=== PATIENT | female | born 1975 | race Caucasian/White ===

== ENCOUNTER 2021-01-09 02:13 | Inpatient (IN) | payer BC ==
--- NOTE | 2021-01-09 03:44 | ED ---
Recheck HPI - General Chief Complaint: Recheck/Abnormal Lab/Rx Stated Complaint: Abd Pain Time Seen by Provider: 01/09/21 02:25 Source: patient, EMS, RN notes reviewed, old records reviewed Mode of arrival: EMS Limitations: no limitations - History of Present Illness Initial Comments: This is a 45-year-old female to the emergency department tonanne-marie. Patient presents today for evaluation regards to abdominal pain is accepted in transfer from outside facility for possibility of small bowel obstruction. In looking at paperwork patient may have some concern for superior mesenteric artery thrombosis with possible ileus type changes which they wanted to concern her correlate clinically for mesenteric ischemia. Patient's pain is currently well-controlled is resting comfortably MD Complaint: abnormal lab (Abnormal computed tomography scan findings for ileus,), other (Patient does have NG tube) -: hour(s) Returns Today for: persistent/worsening pain related to initial visit Symptoms Since Prior Visit: worsening pain Associated Symptoms: abdominal pain Treatments Prior to Arrival: Given Pain Meds on - Related Data Home Medications Medication Instructions Recorded Confirmed No Known Home Medications 01/09/21 01/09/21 Allergies Allergy/AdvReac Type Severity Reaction Status Date / Time No Known Allergies Allergy Verified 01/09/21 06:45 Review of Systems ROS Statement: Those systems with pertinent positive or pertinent negative responses have been documented in the HPI. ROS Other: All systems not noted in ROS Statement are negative. Past Medical History Past Medical History: No Reported History History of Any Multi-Drug Resistant Organisms: None Reported Past Surgical History: Section Past Psychological History: No Psychological Hx Reported Smoking Status: Never smoker Past Alcohol Use History: None Reported Past Drug Use History: None Reported General Exam Limitations: no limitations General appearance: alert, in no apparent distress Head exam: Present: atraumatic, normocephalic, normal inspection Eye exam: Present: normal appearance, PERRL, EOMI. Absent: scleral icterus, conjunctival injection, periorbital swelling ENT exam: Present: normal exam, mucous membranes moist Neck exam: Present: normal inspection. Absent: tenderness, meningismus, lymphadenopathy Respiratory exam: Present: normal lung sounds bilaterally. Absent: respiratory distress, wheezes, rales, rhonchi, stridor Cardiovascular Exam: Present: regular rate, normal rhythm, normal heart sounds. Absent: systolic murmur, diastolic murmur, rubs, gallop, clicks GI/Abdominal exam: Present: soft, tenderness (Epigastric right upper quadrant), normal bowel sounds. Absent: distended, guarding, rebound, rigid Extremities exam: Present: normal inspection, full ROM, normal capillary refill. Absent: tenderness, pedal edema, joint swelling, calf tenderness Back exam: Present: normal inspection Neurological exam: Present: alert, oriented X3, CN II-XII intact Psychiatric exam: Present: normal affect, normal mood Skin exam: Present: warm, dry, intact, normal color. Absent: rash Course Vital Signs 01/09/21 01/09/21 02:25 05:29 Temperature 98.3 F Pulse Rate 66 48 L Respiratory 18 16 Rate Blood Pressure 120/74 135/75 O2 Sat by Pulse 98 95 Oximetry - Reevaluation(s) Reevaluation #1: 01/09/21 07:06 Medical record is reviewed 01/09/21 07:07 Transferring paperwork is also been reviewed Reevaluation #2: 01/09/21 07:06 Patient is resting comfortable throughout ER - Consultations Consultation #1: Spoke with Dr. Yoder regarding patient, aware of patient for consultation Spoke with Dr. Moreau regarding patient's CT findings, is also able to consult on this patient, not initially concerned for significant mesenteric ischemia from suits. Medicine enteric artery atherosclerosis Medical Decision Making - Medical Decision Making 45 female DF for evaluation does have history of a no significant history of high blood pressure cholesterol diabetes smoking. 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
[2021-01-09] MEDS ORDERED: SODIUM CHLORIDE 0.9% 1,000 ML IV STA (07:01)
[2021-01-09] MEDS ORDERED: MORPHINE SULFATE 4 MG/ML SYRINGE IV STA (07:01)
[2021-01-09] MEDS ORDERED: ONDANSETRON 4 MG/2 ML VIAL IVP STA (07:01)
[2021-01-09] MEDS ORDERED: MORPHINE SULFATE 4 MG/ML SYRINGE IV PRN (07:02)
[2021-01-09] MEDS ORDERED: ONDANSETRON 4 MG/2 ML VIAL IVP PRN (07:02)
[2021-01-09] MEDS ORDERED: NALOXONE 0.4 MG/ML 1 ML VIAL IV PRN (07:02)
[2021-01-09] MEDS: SODIUM CHLORIDE 0.9% 1,000 ML IV SCH ×2 (07:32→23:48)
[2021-01-09] MEDS: PANTOPRAZOLE 40 MG/10 ML VIAL IV SCH (07:33)
[2021-01-09 09:08] LABS: Basophils % (A) 0 %; Eosinophils # (A) 0.1 k/uL (0-0.7); Eosinophils % (A) 1 %; HCT 39.8 % (34.0-46.0); HGB 13.7 gm/dL (11.4-16.0); Lymphocytes # (A) 1.5 k/uL (1.0-4.8); Lymphocytes % (A) 20 %; MCH 32.6 pg (25.0-35.0); MCHC 34.4 g/dL (31.0-37.0); MCV 94.9 fL (80.0-100.0); Mean Platelet Volume 7.8; Monocytes # (A) 0.4 k/uL (0-1.0); Monocytes % (A) 5 %; Neutrophils # (A) 5.6 k/uL (1.3-7.7); Neutrophils % (A) 73 %; Platelet Count 220 k/uL (150-450); RBC 4.19 m/uL (3.80-5.40); RDW 13.6 % (11.5-15.5); WBC 7.7 k/uL (3.8-10.6)
[2021-01-09 09:18] LABS: ALT 40 U/L (4-34); AST 20 U/L (14-36); African American GFR (CKD) >90 (>60 ml/min/1.73 sqM); Albumin 3.6 g/dL (3.5-5.0); Alkaline Phosphatase 42 U/L (38-126); Anion Gap 7 mmol/L; Blood Urea Nitrogen 15 mg/dL (7-17); Calcium 8.8 mg/dL (8.4-10.2); Carbon Dioxide 21 mmol/L (22-30); Chloride 105 mmol/L (98-107); Creatine Kinase 40 U/L (30-135); Glucose 90 mg/dL (74-99); Magnesium 1.6 mg/dL (1.6-2.3); Non-African American GFR(CKD) >90 (>60 ml/min/1.73 sqM); Phosphorus 3.4 mg/dL (2.5-4.5); Potassium 3.8 mmol/L (3.5-5.1); Sodium 133 mmol/L (137-145); Total Bilirubin 1.1 mg/dL (0.2-1.3); Total Protein 6.5 g/dL (6.3-8.2)
[2021-01-09 09:25] LABS: Partial Thromboplastin Time 23.5 sec (22.0-30.0); Prothrombin Time 10.3 sec (9.0-12.0)
--- NOTE | 2021-01-09 12:17 | P.GSCN ---
History of Present Illness Consult date: 01/09/21 Reason for Consult: possible mesenteric ischemia Requesting physician: Fabiana Maya History of present illness: This is a 45-year-old female who presented to [facility] in [place] with complaints of severe onset of abdominal pain that began yesterday morning. Patient had associated nausea but no vomiting. She states majority of the pain is in the upper right quadrant to epigastric region. Patient's thought initially it was just cath pain or constipation pain and she states she does not have regular bowel movements. States her last bowel movement was yesterday, and was formed however bowel movements are normally 2 per week. She does not take any medication and that she feels constipated. No significant past medical history other than hypertension, which she does not take medications for. She has no previous history of similar symptoms or previous history of bowel obstruction. She does have a history of section 4, D&C, and endometrial ablation. Shouldn't states she still having abdominal pain however it is improved with pain medication. 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 Moderate constipation trace amount of free fluid within the cul-de-sac. Patient states they placed an NG tube at the previous hospital and she had a large amount of output. There is currently no output at this time. He currently states no fever, chills, nausea, vomiting, abdominal pain improved with medication, no complaints of chest pain or shortness of breath. Review of Systems A 14 point review of systems was completed and all pertinent positives and negatives as stated in the HPI. Past Medical History Past Medical History: No Reported History History of Any Multi-Drug Resistant Organisms: None Reported Past Surgical History: Section Past Psychological History: No Psychological Hx Reported Smoking Status: Never smoker Past Alcohol Use History: None Reported Past Drug Use History: None Reported Medications and Allergies Home Medications Medication Instructions Recorded Confirmed Type No Known Home Medications 01/09/21 01/09/21 History Allergies Allergy/AdvReac Type Severity Reaction Status Date / Time No Known Allergies Allergy Verified 01/09/21 06:45 Surgical - Exam Vital Signs Temp Pulse Resp BP Pulse Ox 98.3 F 66 18 120/74 98 01/09/21 02:25 01/09/21 02:25 01/09/21 02:25 01/09/21 02:25 01/09/21 02:25 General appearance: The patient is alert, oriented, in no acute distress. HET: Head is normocephalic and atraumatic. Neck: Supple without lymphadenopathy. Trachea midline. Heart: S1 S2. Regular rate and rhythm. Lungs: Clear to auscultation. Abdomen: Soft, right upper quadrant tenderness, nondistended with decreased bowel sounds. Extremities: Normal skin color and turgor. No cyanosis, rash, ulceration, clubbing, or edema. Neurological: No focal deficits. Alert and oriented 3. Results - Labs 01/09/21 08:46 01/09/21 08:46 Assessment and Plan Assessment: 1. Abdominal pain 2. Questionable mesenteric ischemia per CT 3. Constipation Plan: 1. Please have CT abdomen and pelvis disc uploaded to our system 2. Keep nothing by mouth 3. Continue pain management 4. Antiemetics as needed 5. Further recommendations to follow Thank you for this consultation, and allowing us take part in the plan of care of your patient during her hospital stay. The impression and plan of care has been dictated as directed. Dr. Jamison I performed a history and examination of this patient, discussed the same with the dictator. I agree with the dictator's note ,documented as a scribe. Any additional findings or plans will be noted.
--- NOTE | 2021-01-09 14:12 | P.GSCN ---
History of Present Illness Consult date: 01/09/21 Reason for Consult: Abdominal pain, possible bowel obstruction History of present illness: The patient's a 45-year-old female who was in her usual state of health when she had sudden onset of abdominal pain about 10 AM. She never had anything like this in the past. Initially thought the patient felt this was some gas pain but it got quite a bit more severe than she usually experiences. Patient's had prior history of section. The pain was in the upper abdomen. Denies nausea or vomiting. Denies any flatus yesterday, this is not unusual for her. Denies fevers or chills. She did have a normal bowel movement that morning. The patient has some issues with chronic constipation and will typically only 2- 3 bowel movements a week. She had a normal one on Saturday and Saturday. She went into the ER and a CT was done showing possible ileus and possible mesenteric artery occlusion or stenosis. She feels better today. The d istention has improved. Nursing says the NG is not been to suction since her arrival. Review of Systems All systems: negative Past Medical History Past Medical History: No Reported History History of Any Multi-Drug Resistant Organisms: None Reported Past Surgical History: Section Past Psychological History: No Psychological Hx Reported Smoking Status: Never smoker Past Alcohol Use History: None Reported Past Drug Use History: None Reported Medications and Allergies Home Medications Medication Instructions Recorded Confirmed Type No Known Home Medications 01/09/21 01/09/21 History Allergies Allergy/AdvReac Type Severity Reaction Status Date / Time No Known Allergies Allergy Verified 01/09/21 06:45 Surgical - Exam Osteopathic Statement: *. No significant issues noted on an osteopathic structural exam other than those noted in the History and Physical/Consult. Vital Signs Temp Pulse Resp BP Pulse Ox 98.3 F 66 18 120/74 98 01/09/21 02:25 01/09/21 02:25 01/09/21 02:25 01/09/21 02:25 01/09/21 02:25 - General well developed, well nourished, no distress - Eyes normal ocular movement - Neck trachea midline - Respiratory normal expansion, clear to auscultation - Cardiovascular Rhythm: regular - Abdomen Abdomen: soft, tender (Walter minimal epigastric tenderness), no guarding, no rigid, distended (Some mild tympany to percussion) Results - Labs 01/09/21 08:46 01/09/21 08:46 Abnormal Lab Results - Last 24 Hours (Table) 01/09/21 Range/Units 08:46 Sodium 133 L (137-145) mmol/L Carbon Dioxide 21 L (22-30) mmol/L ALT 40 H (4-34) U/L Diabetes panel 01/09/21 Range/Units 08:46 Sodium 133 L (137-145) mmol/L Potassium 3.8 (3.5-5.1) mmol/L Chloride 105 (98-107) mmol/L Carbon Dioxide 21 L (22-30) mmol/L BUN 15 (7-17) mg/dL Creatinine 0.60 (0.52-1.04) mg/dL Glucose 90 (74-99) mg/dL Calcium 8.8 (8.4-10.2) mg/dL AST 20 (14-36) U/L ALT 40 H (4-34) U/L Alkaline Phosphatase 42 (38-126) U/L Total Protein 6.5 (6.3-8.2) g/dL Albumin 3.6 (3.5-5.0) g/dL Calcium panel 01/09/21 Range/Units 08:46 Calcium 8.8 (8.4-10.2) mg/dL Phosphorus 3.4 (2.5-4.5) mg/dL Albumin 3.6 (3.5-5.0) g/dL Pituitary panel 01/09/21 Range/Units 08:46 Sodium 133 L (137-145) mmol/L Potassium 3.8 (3.5-5.1) mmol/L Chloride 105 (98-107) mmol/L Carbon Dioxide 21 L (22-30) mmol/L BUN 15 (7-17) mg/dL Creatinine 0.60 (0.52-1.04) mg/dL Glucose 90 (74-99) mg/dL Calcium 8.8 (8.4-10.2) mg/dL Adrenal panel 01/09/21 Range/Units 08:46 Sodium 133 L (137-145) mmol/L Potassium 3.8 (3.5-5.1) mmol/L Chloride 105 (98-107) mmol/L Carbon Dioxide 21 L (22-30) mmol/L BUN 15 (7-17) mg/dL Creatinine 0.60 (0.52-1.04) mg/dL Glucose 90 (74-99) mg/dL Calcium 8.8 (8.4-10.2) mg/dL Total Bilirubin 1.1 (0.2-1.3) mg/dL AST 20 (14-36) U/L ALT 40 H (4-34) U/L Alkaline Phosphatase 42 (38-126) U/L Total Protein 6.5 (6.3-8.2) g/dL Albumin 3.6 (3.5-5.0) g/dL - Imaging CT scan - abdomen: report reviewed, image reviewed Assessment and Plan (1) Abdominal pain Current Visit: Yes Status: Acute Code(s): R10.9 - UNSPECIFIED ABDOMINAL PAIN SNOMED Code(s): 07214535 (2) Ileus Current Visit: Yes Status: Acute Code(s): K56.7 - ILEUS, UNSPECIFIED SNOMED Code(s): 901028936 Plan: The patient is being evaluated by vascular surgery. The patient would be a low risk for mesenteric artery stenosis she is a nonsmoker and there is no evidence of any atherosclerotic change in the aorta near the SMA. This is likely a mild ileus. She hasn't had anything significant out the NG tube so this will be clamped. If she is able to tolerate the tube being clamped without nausea, vomiting or pain, it may be discontinued later today. I'll follow with you.
[2021-01-09 15:10] LABS: Appearance,Urine Clear (Clear); Bilirubin,Urine Negative (Negative); Blood,Urine Negative (Negative); Color,Urine Yellow; Glucose,Urine (UA) Negative (Negative); Ketones,Urine 2+ (Negative); Leukocyte Esterase,Urine Negative (Negative); Nitrite,Urine Negative (Negative); Protein,Urine Trace (Negative); Urobilinogen,Urine <2.0 mg/dL (<2.0)
--- NOTE | 2021-01-09 17:19 | P.HPIM ---
History of Present Illness H&P Date: 01/09/21 Chief Complaint: Abdominal pain Ms. Reynolds is a 45-year-old female with no past medical history coming in with a chief complaint of abdominal pain. Patient is transferred from another hospital at [facility] for possibility of small bowel obstruction. Patient states that she started to have abdominal pain yesterday afternoon. Initially the pain was episodic in nature, it was coming and going but eventually worsened to the extent that she had to go to the emergency. 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 Moderate constipation trace amount of free fluid within the cul-de-sac. Patient states they placed an NG tube at the previous hospital and she had a large amount of output. Patient denied having any nausea or vomiting associated with the abdominal pain. She denied having any fevers chills or rigors. Patient states that she has history of constipation and has a bowel movement once in every 3 days. Her last bowel movement was yesterday morning. Patient denied having any dysuria or hematuria. She denied having any sick contacts. No recent travel. Patient states she almost lost 120 pounds since April 2019. She has been trying to do that with diet and exercise. In the ER here, at the time of admission patient's vitals temperature 98.3, heart rate 66, respiratory rate, blood pressure 120/70. Saturating at 98% on room air. On reviewing her last white count of 7.7, hemoglobin 13.7 and platelets 220. Sodium 133, potassium 3.8, chloride 105, bicarbonate 29, creatinine 15 and 0.6. Urine analysis was positive for trace protein, negative nitrites and leukocyte esterase. Review of Systems REVIEW OF SYSTEMS: CONSTITUTIONAL: No fever, chills or rigors HEENT: No recent visual problems or hearing problems. Denied any sore throat. CARDIOVASCULAR: No chest pain, orthopnea, PND, no palpitations, no syncope. PULMONARY: No shortness of breath, no cough, no hemoptysis. GASTROINTESTINAL: As per HPI NEUROLOGICAL: No headaches, no weakness, no numbness. HEMATOLOGICAL: Denies any bleeding or petechiae. GENITOURINARY: Denies any burning micturition, frequency, or urgency. MUSCULOSKELETAL/RHEUMATOLOGICAL: Denies any joint pain, swelling, or any muscle pain. ENDOCRINE: Denies any polyuria or polydipsia. The rest of the 14-point review of systems is negative. Past Medical History Past Medical History: No Reported History History of Any Multi-Drug Resistant Organisms: None Reported Past Surgical History: Section Past Psychological History: No Psychological Hx Reported Smoking Status: Never smoker Past Alcohol Use History: None Reported Past Drug Use History: None Reported - Past Family History Mother Family Medical History: No Reported History Medications and Allergies Home Medications Medication Instructions Recorded Confirmed Type No Known Home Medications 01/09/21 01/09/21 History Allergies Allergy/AdvReac Type Severity Reaction Status Date / Time No Known Allergies Allergy Verified 01/09/21 06:45 Physical Exam Vitals: Vital Signs Temp Pulse Pulse Resp BP BP Pulse Ox 01/09/21 13:04 99.1 F 61 16 105/60 98 01/09/21 07:42 67 18 128/87 96 01/09/21 05:29 48 L 16 135/75 95 01/09/21 02:25 98.3 F 66 18 120/74 98 Intake and Output 01/08/21 01/09/21 01/09/21 22:59 06:59 14:59 Other: Weight 55.792 kg PHYSICAL EXAMINATION: GENERAL: The patient is alert and oriented x3, not in any acute distress. Well developed, well nourished. HEENT: Pupils are round and equally reacting to light. EOMI. No scleral icterus. No conjunctival pallor. Normocephalic, atraumatic. No pharyngeal erythema. No thyromegaly. CARDIOVASCULAR: S1 and S2 present. No murmurs, rubs, or gallops. PULMONARY: Chest is clear to auscultation, no wheezing or crackles. ABDOMEN: Soft, nontender, nondistended, normoactive bowel sounds. No palpable organomegaly. MUSCULOSKELETAL: No joint swelling or deformity. EXTREMITIES: No cyanosis, clubbing, or pedal edema. NEUROLOGICAL: Gross neurological examination did not reveal any focal deficits. SKIN: No rashes. Results CBC & Chem 7: 01/09/21 08:46 01/09/21 08:46 Labs: Abnormal Lab Results - Last 24 Hours (Table) 01/09/21 Range/Units 08:46 Sodium 133 L (137-145) mmol/L Carbon Dioxide 21 L (22-30) mmol/L ALT 40 H (4-34) U/L Assessment and Plan Assessment: ASSESSMENT Abdominal pain ? Mesenteric ischemia per CT Constipation/ileus/small bowel obstruction PLAN: Patient is currently being managed with conservative measures. Surgery/vascular surgery on board. Less likely that the patient has mesenteric ischemia, as the patient's symptoms are improving significantly. We will continue with pain medications, antiemetics, NG tube to suction and IV hydrati on. Further recommendations depending on the progress of the patient.
[2021-01-10 06:23] LABS: Basophils % (A) 0 %; Eosinophils # (A) 0.2 k/uL (0-0.7); Eosinophils % (A) 3 %; HCT 45.5 % (34.0-46.0); HGB 14.9 gm/dL (11.4-16.0); Lymphocytes # (A) 1.7 k/uL (1.0-4.8); Lymphocytes % (A) 21 %; MCH 32.1 pg (25.0-35.0); MCHC 32.7 g/dL (31.0-37.0); MCV 98.2 fL (80.0-100.0); Mean Platelet Volume 7.9; Monocytes # (A) 0.5 k/uL (0-1.0); Monocytes % (A) 6 %; Neutrophils # (A) 5.7 k/uL (1.3-7.7); Neutrophils % (A) 69 %; Platelet Count 197 k/uL (150-450); RBC 4.64 m/uL (3.80-5.40); WBC 8.2 k/uL (3.8-10.6)
[2021-01-10 06:33] LABS: ALT 32 U/L (4-34); AST 19 U/L (14-36); African American GFR (CKD) >90 (>60 ml/min/1.73 sqM); Albumin 3.8 g/dL (3.5-5.0); Albumin/Globulin Ratio 1.2; Alkaline Phosphatase 51 U/L (38-126); Amylase 56 U/L (30-110); Anion Gap 9 mmol/L; Blood Urea Nitrogen 10 mg/dL (7-17); Calcium 9.2 mg/dL (8.4-10.2); Carbon Dioxide 24 mmol/L (22-30); Chloride 105 mmol/L (98-107); Globulin 3.1 g/dL; Glucose 71 mg/dL (74-99); LDH 501 U/L (313-618); Lipase 32 U/L (23-300); Magnesium 1.6 mg/dL (1.6-2.3); Non-African American GFR(CKD) >90 (>60 ml/min/1.73 sqM); Phosphorus 3.4 mg/dL (2.5-4.5); Sodium 138 mmol/L (137-145); Total Bilirubin 1.7 mg/dL (0.2-1.3); Total Protein 6.9 g/dL (6.3-8.2)
[2021-01-10] MEDS: PANTOPRAZOLE 40 MG/10 ML VIAL IV SCH (08:37)
[2021-01-10] MEDS: SODIUM CHLORIDE 0.9% 1,000 ML IV SCH ×2 (08:41→16:16)
--- NOTE | 2021-01-10 09:11 | P.PN ---
Subjective Progress Note Date: 01/10/21 The patient is seen on rounds. She feels better today. Denies pain. Has passed only a small amount of flatus. NG tube was removed yesterday Objective - Vital Signs Vital signs: Vital Signs Temp 98.1 F 01/10/21 05:23 Pulse 51 L 01/10/21 05:23 Resp 16 01/10/21 05:23 BP 131/68 01/10/21 05:23 Pulse Ox 100 01/10/21 07:46 Intake & Output 01/09/21 01/10/21 01/10/21 18:59 06:59 18:59 Intake Total 130 650 Balance 130 650 Weight 56.5 kg Intake: Intake, IV Titration 130 650 Amount Sodium Chloride 0.9% 1, 130 650 000 ml @ 130 mls/hr IV . Q7H42M [facility] Rx#:[id number] Other: Voiding Method Toilet # Voids 2 - Constitutional General appearance: Present: cooperative, no acute distress - Gastrointestinal General gastrointestinal: Present: normal bowel sounds, soft (slightly distended). Absent: tenderness - Labs CBC & Chem 7: 01/10/21 05:33 01/10/21 05:33 Labs: Abnormal Lab Results - Last 24 Hours (Table) 01/09/21 01/09/21 01/10/21 Range/Units 08:46 14:59 05:33 Sodium 133 L (137-145) mmol/L Carbon Dioxide 21 L (22-30) mmol/L Glucose 71 L (74-99) mg/dL Total Bilirubin 1.7 H (0.2-1.3) mg/dL ALT 40 H (4-34) U/L Ur Specific [place] 1.050 H (1.001-1.035) Urine Protein Trace H (Negative) Urine Ketones 2+ H (Negative) Assessment and Plan (1) Abdominal pain Current Visit: Yes Status: Acute Code(s): R10.9 - UNSPECIFIED ABDOMINAL PAIN SNOMED Code(s): 60615034 (2) Ileus Current Visit: Yes Status: Acute Code(s): K56.7 - ILEUS, UNSPECIFIED SNOMED Code(s): 927950783 Plan: Slowly advance her diet today to low fiber. Currently has a benign abdomen. This may be likely a ileus which will resolve without difficulty
--- NOTE | 2021-01-10 13:26 | P.PN ---
Subjective Progress Note Date: 01/10/21 Patient seen and examined sitting up at the bedside. NG tube has been discontinued and patient is tolerating her diet. States abdominal pain has improved significantly. She has been afebrile. Denies any nausea or vomiting. Objective - Vital Signs Vital signs: Vital Signs Temp 98.7 F 01/10/21 11:40 Pulse 55 L 01/10/21 11:40 Resp 16 01/10/21 11:40 BP 97/60 01/10/21 11:40 Pulse Ox 100 01/10/21 11:40 Intake & Output 01/09/21 01/10/21 01/10/21 18:59 06:59 18:59 Intake Total 130 650 Balance 130 650 Weight 56.5 kg Intake: Intake, IV Titration 130 650 Amount Sodium Chloride 0.9% 1, 130 650 000 ml @ 130 mls/hr IV . Q7H42M [facility] Rx#:[id number] Other: Voiding Method Toilet # Voids 2 - Exam General appearance: The patient is alert, oriented, appears in no acute distress. HET: Head is normocephalic and atraumatic. Conjunctiva pink. Sclera anicteric. Neck: Supple without lymphadenopathy. Abdomen: Soft, nontender, nondistended with bowel sounds. No guarding or rigidity. Extremities: Normal skin color and turgor. No pedal edema Skin: No rashes, no jaundice Neurological: No focal deficits. Alert and oriented 3. - Labs CBC & Chem 7: 01/10/21 05:33 01/10/21 05:33 Labs: Abnormal Lab Results - Last 24 Hours (Table) 01/09/21 01/10/21 Range/Units 14:59 05:33 Glucose 71 L (74-99) mg/dL Total Bilirubin 1.7 H (0.2-1.3) mg/dL Ur Specific [place] 1.050 H (1.001-1.035) Urine Protein Trace H (Negative) Urine Ketones 2+ H (Negative) Assessment and Plan Assessment: 1. Abdominal pain 2. Questionable mesenteric ischemia per CT 3. Constipation Plan: 1. CT abdomen and pelvis was reviewed by Dr. Jamison 2. Diet as tolerated 3. Continue medical management 4. There is no indication for any vascular surgical intervention, patient is cleared for discharge from vascular surgery was otherwise medically clear. The impression and plan of care has been dictated as directed. Dr. Murillo I performed a history and examination of this patient, discussed the same with the dictator. I agree with the dictator's note ,documented as a scribe. Any additional findings or plans will be noted.
--- NOTE | 2021-01-10 14:10 | P.PN ---
Subjective Ms. Reynolds is a 45-year-old female with no past medical history coming in with a chief complaint of abdominal pain. Patient is transferred from another hospital at [facility] for possibility of small bowel obstruction. Patient states that she started to have abdominal pain yesterday afternoon. Initially the pain was episodic in nature, it was coming and going but eventually worsened to the extent that she had to go to the emergency. 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 Moderate constipation trace amount of free fluid within the cul-de-sac. Patient states they placed an NG tube at the previous hospital and she had a large amount of output. Patient denied having any nausea or vomiting associated with the abdominal pain. She denied having any fevers chills or rigors. Patient states that she has history of constipation and has a bowel movement once in every 3 days. Her last bowel movement was yesterday morning. Patient denied having any dysuria or hematuria. She denied having any sick contacts. No recent travel. Patient states she almost lost 120 pounds since April 2019. She has been trying to do that with diet and exercise. In the ER here, at the time of admission patient's vitals temperature 98.3, heart rate 66, respiratory rate, blood pressure 120/70. Saturating at 98% on room air. On reviewing her last white count of 7.7, hemoglobin 13.7 and platelets 220. Sodium 133, potassium 3.8, chloride 105, bicarbonate 29, c reatinine 15 and 0.6. Urine analysis was positive for trace protein, negative nitrites and leukocyte esterase. Subjective: 01/10/2021 Patient today complains of no abdominal pain. Abdomen is not distended. She tolerated some broth with no abdominal pain. She is passing gas but no bowel movements Patient is hemodynamically stable. Labs are unremarkable including CBC, BMP and liver enzymes. Urine analysis is normal General surgery on the case vascular surgery on the case who cleared her for discharge today Objective - Vital Signs Vital signs: Vital Signs Temp 98.7 F 01/10/21 11:40 Pulse 55 L 01/10/21 11:40 Resp 16 01/10/21 11:40 BP 97/60 01/10/21 11:40 Pulse Ox 100 01/10/21 11:40 Intake & Output 01/09/21 01/10/21 01/10/21 18:59 06:59 18:59 Intake Total 130 650 Balance 130 650 Weight 56.5 kg Intake: Intake, IV Titration 130 650 Amount Sodium Chloride 0.9% 1, 130 650 000 ml @ 130 mls/hr IV . Q7H42M [facility] Rx#:[id number] Other: Voiding Method Toilet # Voids 2 - Exam GENERAL: The patient is alert and oriented x3, not in any acute distress. Well developed, well nourished. HEENT: Pupils are round and equally reacting to light. EOMI. No scleral icterus. No conjunctival pallor. Normocephalic, atraumatic. No pharyngeal erythema. No thyromegaly. CARDIOVASCULAR: S1 and S2 present. No murmurs, rubs, or gallops. PULMONARY: Chest is clear to auscultation, no wheezing or crackles. ABDOMEN: Soft, nontender, nondistended, normoactive bowel sounds. No palpable organomegaly. MUSCULOSKELETAL: No joint swelling or deformity. EXTREMITIES: No cyanosis, clubbing, or pedal edema. NEUROLOGICAL: Gross neurological examination did not reveal any focal deficits. SKIN: No rashes. no petechiae. 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 Patient is cleared by Vascular surgery for discharge Plan: This is a pleasant 45 years old female presents with abdominal ileus Advance diet as tolerated General surgery team on the case Vascular Surgery team cleared the patient for discharge Labs and medication were reviewed.. Continue same treatment. Continue with symptomatic treatment. Resume home medication. Monitor lytes and vitals. DVT and GI prophylaxis. Further recommendationsas per clinical course of the patient DVT prophylaxis: Subcutaneous heparin GI Prophylaxis: Ppi Possible discharge in 24-48 hours
[2021-01-11] MEDS: SODIUM CHLORIDE 0.9% 1,000 ML IV SCH ×2 (03:37→07:38)
[2021-01-11] MEDS: PANTOPRAZOLE 40 MG/10 ML VIAL IV SCH (07:38)
[2021-01-11 12:27] VITALS: BP 105/64; PULSE 52; RESP 17; TEMP 97.9
--- NOTE | 2021-01-11 22:45 | P.DS ---
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 Patient is cleared by Vascular surgery for discharge Sinus bradycardia, asymptomatic patient refused inpatient evaluation and wants to follow up as an outpatient Hospital course: Ms. Reynolds is a 45-year-old female with no past medical history coming in with a chief complaint of abdominal pain. Patient is transferred from another hospital at [facility] for possibility of small bowel obstruction. Patient states that she started to have abdominal pain when day earlier. 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 Moderate constipation trace amount of free fluid within the cul-de-sac. Patient states they placed an NG tube at the previous hospital and had a large amount of output. Eventually with treatment and bowel rest her abdominal pain completely resolved, she tolerated diet well and she had no bowel movement she was passing gases. Has been evaluated by Dr. Yoder surgeon who cleared her for discharge today. Today patient was lying in bed, completely asymptomatic and back to her normal self as she states and she was so eager to go home today. Vascular surgery evaluated the patient for possible stenosis of the superior mesenteric arteries however as she has been asymptomatic they cleared her for discharge and follow-up as an outpatient Vitals was showing bradycardia at 46, EKG confirmed sinus bradycardia at [address]-T changes. I talked with cardiology team and sent they can see her but is going to be tomorrow, at this point the patient and her significant other at bedside were so adamant to leave today stating that she has an family event tomorrow, also she told me she has this bradycardia for about several months may be 18 months and she has been already evaluated by her primary doctor with Holter monitor, however she admits has not been seen by stock holder however she is willing to follow up with stock holder as an outpatient within 1 week as instructed. Patient was adamant to be discharged today and follow-up outpatient. She denies chest pain or dyspnea. No coughing. No abdominal pain. No change in urine or bowel habits. No fever. Patient was cleared for discharge by general and vascular surgery Problems and management plan were discussed with the patient and he verbalized understanding and acceptance Patient was found stable and can be discharged home however he needs follow-up as an outpatient. Patient was instructed to follow up with PCP Dr. Johnson within one week and patient agrees Patient was instructed to follow up with Dr. Yoder in one week and Dr. Jun lópez in 1-2 weeks and she agrees to call or make appointments by staff Also staff called cardiac geology associated to make appointment and informed office will call the patient for appointment within a week and informed and she agrees Physical exam Gen: patient is a AAOx3, no distress CVS: S1-S2, RRR, no murmur Lungs: B/L CTA, no wheezing Abdomen: soft, no distention, no tenderness, positive bowel sounds Extremity: no leg edema or induration Time spent more than 35 minutes Patient Condition at Discharge: Fair Plan - Discharge Summary Discharge Rx Participant: No New Discharge Prescriptions: No Action No Known Home Medications Discharge Medication List No Known Home Medications 01/09/21 [History] Follow up Appointment(s)/Referral(s): Joselyn Braga MD [STAFF PHYSICIAN] - 1 Week (office will call patient with date and time of appt.) Zoila Yoder DO [Doctor of Osteopathic Medicine] - 01/19/21 9:15 am () Sulaiman Murillo DO [STAFF PHYSICIAN] - 01/17/21 2:30 pm (vascular surgeon) Alex Riggs DO [Primary Care Provider] - 01/18/21 8:45 am () Patient Instructions/Handouts: Acute Abdominal Pain (DC), Bradycardia (DC), Bowel Obstruction (DC), Ileus (DC) Discharge Disposition: HOME SELF-CARE
== END 2021-01-11 14:50 | disposition home or self-care (01) | DRG 389 ==
LOC: EC 02:13 → 5NMEDONC 07:04
PROVIDERS: ADMIT Hospitalist; ATTEND Hospitalist
DX: K56.7 Ileus, unspecified (principal); K55.9 Vascular disorder of intestine, unspecified; K56.609 Unspecified intestinal obstruction, unspecified as to partial versus complete obstruction; I10 Essential (primary) hypertension; R00.1 Bradycardia, unspecified; K59.00 Constipation, unspecified; Z98.891 History of uterine scar from previous surgery
CPT/HCPCS: 80053; 81003; 82150; 82550; 83605; 83615; 83690; 83735; 83880; 84100; 84443; 84484; 85025; 85610; 85730; 93005; 99285

== ENCOUNTER 2021-01-14 08:35 | Emergency (ER) | payer BC ==
[2021-01-14 08:49] VITALS: TEMP 98.6
[2021-01-14] MEDS ORDERED: ONDANSETRON 4 MG/2 ML VIAL IVP STA (09:04)
[2021-01-14] MEDS ORDERED: SODIUM CHLORIDE 0.9% 1,000 ML IV STA (09:04)
[2021-01-14] MEDS ORDERED: MORPHINE SULFATE 4 MG/ML SYRINGE IV STA (09:04)
[2021-01-14] MEDS ORDERED: PANTOPRAZOLE 40 MG/10 ML VIAL IVP STA (09:19)
--- NOTE | 2021-01-14 09:47 | ED ---
Abdominal Pain HPI - General Chief Complaint: Abdominal Pain Stated Complaint: abd pain Time Seen by Provider: 01/14/21 08:54 Source: patient, RN notes reviewed Mode of arrival: ambulatory Limitations: no limitations - History of Present Illness Initial Comments: Patient is a 45-year-old female that presents emergency department complaining of abdominal pain. She notes she was recently discharged from the hospital for small bowel structure. She notes that she had an NG tube placed which decompressed her stomach and she started feeling much better. She notes that she thinks the acid that sitting in her stomach might of cost an ulcer. She notes that she's had bowel movements over the last 1-2 days. She did not appear to be in any distress or pain while sitting up in bed during the exam interview.CT of the abdomen and pelvis showed suspicion for moderate stenosis occlusion of proximal superior mesenteric artery was small bowel dilation sug gestive either small bowel ileus changes with underlying ischemic change cannot be excluded according clinically. Patient was cleared by vascular surgery. Today she denied any chest pain shortness of breath headache vomiting diarrhea constipation fever fatigue chills. - Related Data Previous Rx's Medication Instructions Recorded Ondansetron Odt [Zofran Odt] 4 mg PO Q8HR PRN #10 tab 01/14/21 Allergies Allergy/AdvReac Type Severity Reaction Status Date / Time No Known Allergies Allergy Verified 01/14/21 08:49 Review of Systems ROS Statement: Those systems with pertinent positive or pertinent negative responses have been documented in the HPI. ROS Other: All systems not noted in ROS Statement are negative. Past Medical History Past Medical History: No Reported History Additional Past Medical History / Comment(s): bowel obstruction History of Any Multi-Drug Resistant Organisms: None Reported Past Surgical History: Section Past Psychological History: No Psychological Hx Reported Smoking Status: Never smoker Past Alcohol Use History: None Reported Past Drug Use History: None Reported - Past Family History Mother Family Medical History: No Reported History General Exam Limitations: no limitations General appearance: alert, in no apparent distress Head exam: Present: atraumatic, normocephalic, normal inspection Eye exam: Present: normal appearance, PERRL, EOMI. Absent: scleral icterus, conjunctival injection, periorbital swelling ENT exam: Present: normal exam, mucous membranes moist Neck exam: Present: normal inspection Respiratory exam: Present: normal lung sounds bilaterally. Absent: respiratory distress, wheezes, rales, rhonchi, stridor Cardiovascular Exam: Present: regular rate, normal rhythm, normal heart sounds. Absent: systolic murmur, diastolic murmur, rubs, gallop, clicks GI/Abdominal exam: Present: soft, tenderness (Generalized in all quadrants), normal bowel sounds. Absent: distended, guarding, rebound, rigid Extremities exam: Present: normal inspection, full ROM, normal capillary refill. Absent: tenderness, pedal edema, joint swelling, calf tenderness Neurological exam: Present: alert, oriented X3 Psychiatric exam: Present: normal affect, normal mood Skin exam: Present: warm, dry, intact, normal color. Absent: rash Course Vital Signs 01/14/21 01/14/21 01/14/21 08:47 09:49 10:00 Temperature 98.6 F Pulse Rate 82 Respiratory 16 18 18 Rate Blood Pressure 113/76 O2 Sat by Pulse 97 Oximetry 01/14/21 01/14/21 11:00 12:00 Temperature Pulse Rate 57 L Respiratory 18 18 Rate Blood Pressure 104/67 O2 Sat by Pulse Oximetry Medical Decision Making - Medical Decision Making 45-year-old female complaining of abdominal pain, recent discharge from the possible for a small bowel ileus. Labs, 1 L normal saline, 4 g morphine, 4 mg Zofran, 40 mg of pantoprazole, KUB ordered. X-ray shows favorites persistent distal small bowel obstruction. Labs unremarkable. Patient is tolerating oral fluid intake in the emergency room stating that she feels much better at this time. Case discussed with Dr. Land, patient discharge home with close follow-up to primary care and GI specialist. - Lab Data Result diagrams: 01/14/21 09:52 01/14/21 10:52 Lab Results 01/14/21 01/14/21 01/14/21 Range/Units 09:52 09:52 10:52 WBC 9.9 (3.8-10.6) k/uL RBC 4.81 (3.80-5.40) m/uL Hgb 15.9 (11.4-16.0) gm/dL Hct 46.0 (34.0-46.0) % MCV 95.7 (80.0-100.0) fL MCH 33.0 (25.0-35.0) pg MCHC 34.5 (31.0-37.0) g/dL RDW 12.9 (11.5-15.5) % Plt Count 247 (150-450) k/uL MPV 8.7 Neutrophils % 85 % Lymphocytes % 11 % Monocytes % 3 % Eosinophils % 1 % Basophils % 0 % Neutrophils # 8.4 H (1.3-7.7) k/uL Lymphocytes # 1.0 (1.0-4.8) k/uL Monocytes # 0.3 (0-1.0) k/uL Eosinophils # 0.1 (0-0.7) k/uL Basophils # 0.0 (0-0.2) k/uL Sodium 139 (137-145) mmol/L Potassium 4.2 (3.5-5.1) mmol/L Chloride 104 (98-107) mmol/L Carbon Dioxide 25 (22-30) mmol/L Anion Gap 10 mmol/L BUN 14 (7-17) mg/dL Creatinine 0.66 (0.52-1.04) mg/dL Est GFR (CKD-EPI)AfAm >90 (>60 ml/min/1.73 sqM) Est GFR (CKD-EPI)NonAf >90 (>60 ml/min/1.73 sqM) Glucose 82 (74-99) mg/dL Plasma Lactic Acid [place] 1.0 (0.7-2.0) mmol/L Calcium 9.2 (8.4-10.2) mg/dL Total Bilirubin 1.0 (0.2-1.3) mg/dL AST 20 (14-36) U/L ALT 28 (4-34) U/L Alkaline Phosphatase 44 (38-126) U/L Total Protein 6.5 (6.3-8.2) g/dL Albumin 3.8 (3.5-5.0) g/dL Amylase 53 (30-110) U/L Lipase 39 (23-300) U/L - Radiology Data Radiology results: report reviewed, image reviewed KUB: Findings consistent with persistent distal small bowel obstruction. Disposition Clinical Impression: Abdominal pain, Ileus Disposition: HOME SELF-CARE Condition: Stable Instructions (If sedation given, give patient instructions): Abdominal Pain (ED) Additional Instructions: Please return to the Emergency Department if symptoms worsen or any other concerns. Follow-up with primary care 1-2 days. Follow-up with GI specialist as soon as possible. Continue to increase oral fluids. Is patient prescribed a controlled substance at d/c from ED?: No Referrals: Alex Riggs DO [Primary Care Provider] - 1-2 days Myriam Mckinney MD [STAFF PHYSICIAN] - 1-2 days Time of Disposition: 12:58
[2021-01-14 09:54] VITALS: RESP 18
[2021-01-14 10:01] LABS: Basophils % (A) 0 %; Eosinophils # (A) 0.1 k/uL (0-0.7); Eosinophils % (A) 1 %; HGB 15.9 gm/dL (11.4-16.0); Lymphocytes % (A) 11 %; MCHC 34.5 g/dL (31.0-37.0); MCV 95.7 fL (80.0-100.0); Mean Platelet Volume 8.7; Monocytes # (A) 0.3 k/uL (0-1.0); Monocytes % (A) 3 %; Neutrophils # (A) 8.4 k/uL (1.3-7.7); Neutrophils % (A) 85 %; Platelet Count 247 k/uL (150-450); RBC 4.81 m/uL (3.80-5.40); RDW 12.9 % (11.5-15.5); WBC 9.9 k/uL (3.8-10.6)
--- NOTE | 2021-01-14 10:40 | XR ---
EXAMINATION TYPE: XR KUB DATE OF EXAM: 01/14/2021 10:29 AM CLINICAL HISTORY: Abdominal pain TECHNIQUE: Two Upright KUB images of the abdomen are obtained. COMPARISON: Outside CT January 08, 2021. FINDINGS: Some paucity of bowel gas. Persistent slightly prominent small bowel loops right mid abdome n with air-fluid levels. Gas seen in nondistended bowel loops along the periphery. No free air. Lung bases are clear. Osseous structures are intact IMPRESSION: Findings consistent with persistent distal small bowel obstruction.
[2021-01-14 11:26] LABS: ALT 28 U/L (4-34); AST 20 U/L (14-36); African American GFR (CKD) >90 (>60 ml/min/1.73 sqM); Albumin 3.8 g/dL (3.5-5.0); Alkaline Phosphatase 44 U/L (38-126); Amylase 53 U/L (30-110); Anion Gap 10 mmol/L; Blood Urea Nitrogen 14 mg/dL (7-17); Calcium 9.2 mg/dL (8.4-10.2); Carbon Dioxide 25 mmol/L (22-30); Chloride 104 mmol/L (98-107); Glucose 82 mg/dL (74-99); Lipase 39 U/L (23-300); Non-African American GFR(CKD) >90 (>60 ml/min/1.73 sqM); Potassium 4.2 mmol/L (3.5-5.1); Sodium 139 mmol/L (137-145); Total Protein 6.5 g/dL (6.3-8.2)
[2021-01-14 12:33] VITALS: BP 104/67; PULSE 57
== END 2021-01-14 13:09 | disposition home or self-care (01) ==
LOC: EC 08:35
DX: K56.7 Ileus, unspecified (principal)
CPT/HCPCS: 99284; 96374; 96375 ×2; 96361 ×2; 80053; 82150; 83605; 83690; 85025; 74018; J2270; J2405; C9113